=== PATIENT | male | born 1960 | race Caucasian/White ===

== ENCOUNTER → 2016-12-20 | Outpatient (CLI) | payer OTHER ==
[~2016-12-20] MED LIST: AMOXICILLIN500 M1 PO; COLACE100 MG PO; COZAAR100 MG PO; DILAUDID 2MG(HYD2 MG PO; ECOTRIN325 MG PO; FLOMAX0.4 MG PO; LEVOTHROID (SY88 MCG PO; MAGNESIUM500 MG PO; MIRALAX17 GM PO; MORPHINE 15MG I15 MG PO; NEURONTIN600 MG PO; NORCO 10-325 T1 EACH PO; NORCO 7.5-3251 EACH PO; POTASSIUM; POTASSIUM GLUCO99 MG PO; PRILOSEC20 MG PO; PROGRAF0.5 MG PO; TOPROL XL 5050 MG PO; VALIUM5 MG PO; XANAX0.25 MG PO
== END | disposition disaster alternative care site (69) ==
LOC: GRAD 12-13 15:00
DX: M16.11 Unilateral primary osteoarthritis, right hip (principal)

== ENCOUNTER 2017-01-20 08:00 | Inpatient (IN) | payer OTHER ==
[~2017-01-20] VITALS: Ht 193 cm; Wt 135.9 kg
--- NOTE | ~2017-01-20 | OR ---
PATIENT'S NAME: JOSE CASTELLON [facility] AGE: 57 Y [address] ROOM: [address] [address] LOCATION: [facility] ADMIT DATE: 02/05/2017 OR/Procedure Report DISCHARGE DATE: FAMILY PHYSICIAN: BARBARA CORRAL MD ATTENDING PHYSICIAN: Inocente Bravo SURGEON: Inocente Bravo MD MARINE SERVICE OPERATOR: ABDULKADIR Merida. DATE OF PROCEDURE: 02/05/2017 PREOPERATIVE DIAGNOSIS: Avascular necrosis, right hip. POSTOPERATIVE DIAGNOSIS: Avascular necrosis, right hip. OPERATION: Right total hip replacement with robot assist using a Faby Accolade II, #10 high offset stem with +0 x 40 mm head and a 56 mm PSL multi- holed cup with a 40 mm X3 liner. ANESTHESIA: General ET tube. INDICATIONS: This is a 57-year-old male with a liver transplant 6 years ago, who was noted to have avascular necrosis of his right femoral head with collapse of the head and severe pain. DESCRIPTION OF PROCEDURE: The patient was brought to the operating room, and when satisfactory general anesthesia had been established, he was placed on his left side with his right side up. The right lower extremity, hip, and hemipelvis were prepped and draped in an aseptic manner. The array for the robot was placed after three Schanz screws were placed in the iliac crest. The EKG pad had been placed on the inferior pole of the patella prior to prepping. A curvilinear posterior incision was then made and carried down through the subcutaneous fat. The incision was centered over the greater trochanter. The incision was carried down through subcutaneous fat and the fascia emre and fascia of the gluteus medius were divided in line with the skin incision. The short external rotators were exposed and put on stretch and cut close to the greater trochanter. A registering pin was placed on the prominence of the greater trochanter, and the femoral length registered. The capsule was then opened in an upside-down hockey stick-shaped incision and the hip dislocated. The neck was cut just proximal to the lesser trochanter as per the plan. The head was removed. There were large chunks of articular cartilage attached with thin pieces of bone throughout the hip joint. The box cut chisel was used to lateralize the neck and the canal was found. Broaching was begun at the two and carried up to the 10 broach and that appeared to fit well. The acetabulum was then exposed and the soft tissues debrided. The acetabulum was registered after checking the check point and placing the check point proximal to the acetabulum. Once the acetabulum had been registered, PATIENT'S NAME: JOSE CASTELLON [facility] AGE: 57 Y [address] ROOM: [address] [address] LOCATION: [facility] ADMIT DATE: 02/05/2017 OR/Procedure Report DISCHARGE DATE: FAMILY PHYSICIAN: BARBARA CORRAL MD ATTENDING PHYSICIAN: Inocente Bravo the predetermined 56 mm reamer was brought in and positioned in the cup, reamed down to zero. The trial was placed and it did not really stick, so a cluster holed cup was selected. It was placed onto the robotic arm and positioned and then impacted home. It fit nicely. Trial reduction was performed with the a 36 head and +0 neck on the #10 broach. Osteophytes anteriorly had been removed. The hip was still quite stiff because he had been lengthen some. On registering, the leg was 3 mm longer than the opposite side and offset was about 2 mm less. The hip was stable in abduction and external rotation, but at 90 degrees of flexion with 0 degrees of adduction, it would dislocate at about 30 degrees of internal rotation. Osteophytes were removed and was opted to use a 40 mm head. The 40 mm X3 liner was impacted home. The 10 Accolade high offset stem was then impacted home and it appeared to fit well. The +0 x 40 mm head was impacted on the trunnion and the hip reduced. The hip would dislocate at 90 degrees of flexion with 0 degrees of adduction and about 40 degrees of internal rotation. The final length was 4 mm longer than the opposite side and offset was 2 mm less than the opposite side. This was accepted. The wound was irrigated copiously with saline and closed in layers using interrupted #2 FiberWire to close the capsule and also to suture the piriformis to the gluteus medius using a modified Castro stitch. The fascia emre was closed with running #1 Vicryl and the remainder of the closure by ABDULKADIR Hidalgo, with a running 2-0 Vicryl to the subcutaneous fat and skin dharmesh for the skin. Dressings were applied. The patient awakened and sent to the PACU, having tolerated the procedure well. MD SINDI BUTLER/jay jay /[id number] d: 02/05/17 1251 t: 02/06/17 1918, OPERATIVE SUMMARY
--- NOTE | ~2017-01-20 | DS ---
PATIENT'S NAME: JOSE MATTHEWS [facility] AGE: 57 Y [address] ROOM: [place] [address] LOCATION: [id number] ADMIT DATE: 02/05/2017 Discharge Summary DISCHARGE DATE: 02/07/2017 FAMILY PHYSICIAN: Dio Scales MD ATTENDING PHYSICIAN: Inocente Bravo Mr. Matthews came in with collapsed AVN, right femoral head, and significant osteoarthritis of the right hip. He had a Mauro assisted robot with an Accolade II, size 10, high-offset stem, +0 40 head, 56 PSL with a 40 mm X3 liner. HOSPITAL COURSE: He had some postoperative nausea, aspirin 325 p.o. daily for 30 days was initiated for his DVT prophylaxis, all NSAIDs were held due to his comorbidities. He was discharged on postop day #2. DISCHARGE INSTRUCTIONS: Hip dislocation precautions, follow up with us in 6- 12 days, Mepilex dressing on until followup. Continue aspirin 325 p.o. b.i.d. for 30 days total, end-dose is 03/07/2017. Continue other prehospitalization medication regimen with the following prescriptions written Valium 5 mg tab 1/2 to 1 q.6 as needed for spasm, Franklin 10/325 1-2 p.o. q.4 p.r.n. pain, dispensed 50. ABDULKADIR TYLER FOR MD MARIA DEL CARMEN BUTLER/jay jay /[id number] d: 02/13/17 0228 t: 02/19/17 1117, DISCHARGE SUMMARY
[~2017-01-20 08:00] MED LIST changes: -AMOXICILLIN500 M1 PO; -NORCO 7.5-3251 EACH PO; -XANAX0.25 MG PO
[2017-01-20] MEDS ORDERED: XANAX0.25 MG PO (08:12)
[2017-01-20] MEDS ORDERED: NORCO 7.5-3251 EACH PO (08:13)
[2017-01-20] MEDS ORDERED: AMOXICILLIN500 M1 PO (08:15)
[2017-02-06 05:31] LABS: HEMATOCRIT 35.1 % (37.0-53.0)
[2017-02-07] MEDS ORDERED: ECOTRIN325 MG PO (07:14)
[2017-02-07] MEDS ORDERED: NORCO 10-325 T1 EACH PO (07:15)
[2017-02-07] MEDS ORDERED: VALIUM5 MG PO (07:16)
[2017-02-07] MEDS ORDERED: COLACE100 MG PO (10:55)
[2017-02-07] MEDS ORDERED: MIRALAX17 GM PO (10:57)
== END 2017-02-07 11:55 | disposition disaster alternative care site (69) | DRG 470 ==
LOC: G3N 02-05 05:59
PROVIDERS: ADMIT Orthopaedic Surgery
PROC: 0SR902Z Replacement of Right Hip Joint with Metal on Polyethylene Synthetic Substitute, Open Approach (ICD-10-PCS; principal; 2017-02-05)
DX: M87.851 Other osteonecrosis, right femur (principal); Z94.4 Liver transplant status; E66.9 Obesity, unspecified; Z68.38 Body mass index [BMI] 38.0-38.9, adult; I10 Essential (primary) hypertension; E03.9 Hypothyroidism, unspecified; K21.9 Gastro-esophageal reflux disease without esophagitis; F41.9 Anxiety disorder, unspecified
CPT/HCPCS: C1713; C1776; J0131; J0171; J0690; J0735; J1100; J1885; J2250; J2405; J2550; J2795; J3010; J7030; J7040; J7120; J7507

== ENCOUNTER → 2017-01-23 | Outpatient (CLI) | payer OTHER ==
[~2017-01-23] MED LIST changes: +AMOXICILLIN500 M1 PO; +NORCO 7.5-3251 EACH PO; +XANAX0.25 MG PO
== END | disposition disaster alternative care site (69) ==
LOC: GNJRC 10:25
DX: Z01.812 Encounter for preprocedural laboratory examination (principal)